=== PATIENT | female | born 1955 | race African-American/Black ===

== ENCOUNTER 2020-05-29 06:09 | Emergency (ER) | payer MEDICAID ==
[~2020-05-29] VITALS: Ht 167.6 cm; Wt 65.0 kg
[2020-05-29 08:32] LABS: CLARITY URINE TURBID (CLEAR); KETONES URINE 1+ (NEGATIVE); LEUKOCYTE ESTERASE URINE 3+ (NEGATIVE); NITRITE URINE POSITIVE (NEGATIVE); OCCULT BLOOD URINE 3+ (NEGATIVE); PROTEIN URINE 2+ (NEGATIVE); SPECIFIC GRAVITY URINE 1.015 (1.005-1.030)
[2020-05-29 08:36] LABS: COLOR URINE AMBER (YELLOW)
[2020-05-29 09:36] VITALS: BP 129/80
== END 2020-05-29 09:40 | disposition home or self-care (01) ==
LOC: ER 06:09
DX: N30.00 Acute cystitis without hematuria (principal)
CPT/HCPCS: 81003; 93005; 99284